=== PATIENT | male | born 1955 | race Asian ===

== ENCOUNTER 2017-12-04 06:38 | Day surgery (SDC) | payer OTHER ==
[2017-12-04] MEDS ORDERED: LIDOCAINE 2% (SDV) 5 ML INJ (08:40)
[2017-12-04] MEDS ORDERED: PROPOFOL 20 ML (08:40)
[2017-12-04] MEDS ORDERED: MIDAZOLAM 1 MG/ML 2 ML INJ (08:41)
[2017-12-04] MEDS ORDERED: FENTAnyl 50 MCG/ML VIAL (08:41)
== END 2017-12-04 15:10 | disposition home or self-care (01) ==
LOC: GIL 06:38
DX: K29.70 Gastritis, unspecified, without bleeding (principal); K64.4 Residual hemorrhoidal skin tags
CPT/HCPCS: 43239; 88305; 88312